=== PATIENT | male | born 1990 | race Caucasian/White ===

== ENCOUNTER 2021-09-11 19:12 | Emergency (ER) | payer OTHER, SELFPAY ==
--- NOTE | ~2021-09-11 | XR_ITS ---
EXAMINATION: XR chest 2V Exam Date/Time: 09/11/2021 19:31 CDT CLINICAL HISTORY: COUGH X 2 WEEKS. Comparison: None available. RESULT: Lines, tubes, and devices: None. Lungs and pleura: Clear. Cardiomediastinal silhouette: Normal cardiomediastinal silhouette. Other: No acute osseous or upper abdominal finding. IMPRESSION: No acute cardiopulmonary process Reviewed, dictated and finalized at location K.
[2021-09-11 19:16] VITALS: BP 149/89; PULSE 103; RESP 16; TEMP 37.1; O2SAT 100
--- NOTE | 2021-09-11 19:28 | ED.URI ---
HPI - URI/Sore Throat General Chief Complaint: Upper Respiratory Infection Stated Complaint: cough sinus pressure Time Seen by Provider: 09/11/21 19:29 Source: patient and RN notes reviewed Mode of arrival: ambulatory Limitations: no limitations History of Present Illness HPI Narrative: 31 y/o male presented for c/o lingering cough for 2 weeks, worse x3 days. Cough is productive of brown/yellow sputum. Worse in the morning with post nasal drainage, causing severe throat pain. States sinus congestion has been improving over the past 2 weeks, endorses subjective fever. MD elicited complaint: cough Related Data Allergies Allergy/AdvReac Type Severity Reaction Status Date / Time No Known Allergies Allergy Verified 09/11/21 19:34 Review of Systems Review of Systems: All systems reviewed & are unremarkable except as noted in HPI and below Exam Narrative: GENERAL: Ill-appearing, nontoxic HEAD: Normocephalic EYES: conjunctivae clear ENT: Mucous membranes moist. TMs pearly hooper with normal light reflex bilaterally; no tragal tenderness. Oropharynx erythematous without lesions or exudate, no drooling, no hoarseness, no trismus, uvula midline.No tripod positioning, muffled voice, soft palate or pharyngeal wall bulging NECK: Supple. No lymphadenopathy CHEST: Clear to auscultation, breath sounds equal. No wheezing, rhonchi, rales, or stridor. No respiratory distress, speaks in full sentences. HEART: Regular rate and rhythm. No murmur heard. SKIN: Warm, dry, no rash. NEURO: Alert and oriented x3. PSYCH: Normal mood and affect Course Course Emergency Course: Patient is aware of diagnosis, understands and agrees to treatment plan. Anticipatory guidance given. Patient agrees to follow-up as directed and is aware of reasons to seek care at the emergency department. Portions of this record may have been created with voice recognition software Level of Care: Express Care Visit Vital Signs Vital signs: Vital Signs Temperature 98.8 F 09/11/21 19:16 Pulse Rate 103 H 09/11/21 19:16 Respiratory Rate 16 09/11/21 19:16 Blood Pressure 149/89 H 09/11/21 19:16 Pulse Oximetry 100 09/11/21 19:16 Temperature 98.8 F 09/11/21 19:16 Pulse Rate 103 H 09/11/21 19:16 Respiratory Rate 16 09/11/21 19:16 Blood Pressure 149/89 H 09/11/21 19:16 Pulse Oximetry 100 09/11/21 19:16 reviewed MDM - URI/Sore Throat MDM Narrative Medical decision making narrative: CXR negative, reviewed with pt. He states he is having paralyzing throat pain when coughing, strep swab negative. Will send abx for sinus infection x2 weeks. He is appropriate for outpt treatment and f/u. Differential Diagnosis Differential diagnosis: Likely upper respiratory infection, sinusitis, viral infection, bronchitis and pharyngitis Lab Data Attestation: I reviewed the patient's lab results. Imaging Data Radiologist's impression: Ordering Physician: Maryjane Razo APRN Date of Service: 09/11/21 Procedure(s): XR chest 2V Accession Number(s): [id number] cc: Maryjane Razo APRN; Liane, Joycelyn Lyle MD~ EXAMINATION: XR chest 2V Exam Date/Time: 09/11/2021 19:31 CDT CLINICAL HISTORY: COUGH X 2 WEEKS. Comparison: None available. RESULT: Lines, tubes, and devices: None. Lungs and pleura: Clear. Cardiomediastinal silhouette: Normal cardiomediastinal silhouette. Other: No acute osseous or upper abdominal finding. IMPRESSION: No acute cardiopulmonary process Discharge Plan Discharge Clinical Impression: Upper respiratory infection Qualifiers: URI type: unspecified URI Qualified Code(s): J06.9 - Acute upper respiratory infection, unspecified Patient Disposition: Home, Self-Care Condition: Stable Instructions: Antibiotic Form, Sinusitis (ED) Additional Instructions: Rapid strep swab was negative today You will be notified in a few days if the culture comes back positive for strep, and appropriate antibiotics will be called in
== END 2021-09-11 20:04 | disposition home or self-care (01) ==
PROVIDERS: Emergency Provider Nurse Practitioner Family; PCP Family Medicine
DX: J06.9 Acute upper respiratory infection, unspecified (principal)
CPT/HCPCS: 71046; 87081; 87880; 99213; G0463

== ENCOUNTER 2023-02-10 17:10 | Emergency (ER) | payer OTHER, SELFPAY ==
[2023-02-10 17:24] VITALS: BP 150/89; PULSE 92; RESP 18; TEMP 36.3; O2SAT 100
--- NOTE | 2023-02-10 18:13 | ED.GENADULT ---
HPI - General Adult General Chief complaint: Skin/Abscess/Foreign Body Stated complaint: rash on feet/legs Source: patient Mode of arrival: ambulatory Limitations: no limitations History of Present Illness HPI narrative: Patient presents for evaluation of skin concerns. He indicates he has an underlying history of eczema. He had noted some pruritic areas of redness to bilateral wrists a few weeks ago. Areas have persisted. He works for a [employer] company and states his feet got extremely wet while working two days ago. He now has areas of redness to the dorsal aspects of his bilateral feet and dry cracked skin to plantar aspects. He placed bandages on both feet. He has some discomfort associated with his symptoms. Denies significant pruritis. He has some areas to his lower legs that he thinks may be areas of eczema. He is not diabetic. Related Data Allergies Allergy/AdvReac Type Severity Reaction Status Date / Time peanut Allergy Unknown Verified 02/10/23 17:22 Review of Systems Review of Systems: CONSTITUTIONAL: Denies fever, chills, or sweats. EYES: Denies visual changes, redness, or discharge. ENT: Denies rhinorrhea, congestion, sore throat, or otalgia. CARDIOVASCULAR: Denies chest pain, palpitations, or edema. RESPIRATORY: Denies cough or dyspnea. GASTROINTESTINAL: Denies abdominal pain, nausea, vomiting, or diarrhea. GENITOURINARY: Denies dysuria or hematuria. SKIN: Reports areas of redness and cracking to bilateral feet. Reports areas of erythematous rash to bilateral lower legs. MUSCULOSKELETAL: Denies back pain, joint pain, or myalgia. NEUROLOGIC: Denies headache, numbness, dizziness, or weakness. PSYCHIATRIC: Denies anxiety or depression. [facility] Past Medical History Medical History (Updated 02/10/23 @ 18:22 by TASHI Pope, DANNI) Eczema Surgical History Surgical History No pertinent past surgical history Family History Family History Mother Family history non-contributory Social History Social History Smoking status: Never smoker Substance use: never Living arrangements: with family Gender identity (if verbalized by the patient): Male Sexual Orientation (if Verbalized by the Patient): Straight or Heterosexual Spiritual care concerns: No Exam Narrative: GENERAL: Well-appearing, well-nourished, and in no acute distress. HEAD: Normocephalic, atraumatic. EYES: PERRLA and EOMI. ENT: Nares clear, no rhinorrhea or epistaxis. Mucous membranes moist. Oropharynx without tonsillar hypertrophy exudate or other lesions. Bilateral TMs pearly hooper nonbulging NECK: Supple. No adenopathy or masses. No carotid bruits or JVD CHEST: Clear to auscultation. No respiratory distress. No wheezes rales or rhonchi HEART: Regular rate and rhythm. No murmur heard. Normal peripheral pulses. ABDOMEN: Soft, nontender, nondistended, normal active bowel sounds. EXTREMITIES: Normal range of motion. No edema. SKIN: There are scaling erythematous plaques noted to the bilateral knees. There are vesicular lesions noted to the bilateral wrists. There are areas of erythema surrounding hair follicles noted to the bilateral lower legs. There is erythema in a patchy distribution to both feet with some areas of redness surrounding hair follicles. There is cracked skin noted to the plantar aspect of bilateral feet NEURO: No focal deficits. Alert and oriented x3. PSYCH: Normal mood and affect. Course Course Emergency Course: This is a 32-year-old male who presented for evaluation of skin concerns. Some of the vesicular lesions appear to be poison kaity. He does have an underlying history of eczema. In an attempt to prevent symptom recurrence often experienced with burst steroid therapy for poison kaity/oak/sumac, will give him a mirtha
== END 2023-02-10 18:11 | disposition home or self-care (01) ==
PROVIDERS: Emergency Provider Nurse Practitioner
DX: L73.9 Follicular disorder, unspecified (principal); L30.9 Dermatitis, unspecified; R21 Rash and other nonspecific skin eruption
CPT/HCPCS: 99213; G0463

== ENCOUNTER 2023-11-09 11:06 | Emergency (ER) | payer OTHER, SELFPAY ==
[2023-11-09 11:12] VITALS: BP 125/75; PULSE 68; RESP 16; TEMP 36.6; O2SAT 99
--- NOTE | 2023-11-09 11:35 | ED.GENADULT ---
HPI - General Adult General Chief complaint: Skin/Abscess/Foreign Body Stated complaint: right hand finger infection Source: patient Mode of arrival: ambulatory Limitations: no limitations History of Present Illness HPI narrative: Patient presents for evaluation of skin changes to the 4th digit of the right hand. He indicates he has a history of eczema. He first noted symptoms consistent with his eczema approximately 2 weeks ago. He began scratching the area and noted excoriation to the skin. He has cleaned the affected digit more than five times with hydrogen peroxide and states that it is not healing. No fever, chills, nausea, vomiting, purulence from the affected area. He indicates that continues to weep clear yellow fluid. He is not diabetic. He does not smoke. He is right hand dominant. Related Data Home Medications Medication Instructions Recorded Confirmed cholecalciferol (vitamin D3) 25 1,000 unit PO DAILY 11/09/23 11/09/23 mcg (1,000 unit) tablet Allergies Allergy/AdvReac Type Severity Reaction Status Date / Time peanut Allergy Unknown Verified 11/09/23 11:17 Review of Systems Review of Systems: CONSTITUTIONAL: Denies fever, chills, or sweats. EYES: Denies visual changes, redness, or discharge. ENT: Denies rhinorrhea, congestion, sore throat, or otalgia. CARDIOVASCULAR: Denies chest pain, palpitations, or edema. RESPIRATORY: Denies cough or dyspnea. GASTROINTESTINAL: Denies abdominal pain, nausea, vomiting, or diarrhea. GENITOURINARY: Denies dysuria or hematuria. SKIN: Reports excoriated skin with weeping fluid from the 4th digit of the right hand MUSCULOSKELETAL: Denies back pain, joint pain, or myalgia. NEUROLOGIC: Denies headache, numbness, dizziness, or weakness. PSYCHIATRIC: Denies anxiety or depression. [facility] Past Medical History Medical History Eczema Surgical History Surgical History No pertinent past surgical history Family History Family History Mother Family history non-contributory Social History Social History Smoking status: Never smoker Substance use: never Living arrangements: with family Gender identity (if verbalized by the patient): Male Sexual Orientation (if Verbalized by the Patient): Straight or Heterosexual Spiritual care concerns: No Exam Narrative: GENERAL: Well-appearing, well-nourished, and in no acute distress. HEAD: Normocephalic, atraumatic. EYES: PERRLA and EOMI. ENT: Nares clear, no rhinorrhea or epistaxis. Mucous membranes moist. Oropharynx without tonsillar hypertrophy exudate or other lesions. Bilateral TMs pearly hooper nonbulging NECK: Supple. No adenopathy or masses. No carotid bruits or JVD CHEST: Clear to auscultation. No respiratory distress. No wheezes rales or rhonchi HEART: Regular rate and rhythm. No murmur heard. Normal peripheral pulses. ABDOMEN: Soft, nontender, nondistended, normal active bowel sounds. EXTREMITIES: Normal range of motion. No edema. SKIN: Excoriated skin noted to the dorsal aspect of the 4th digit of right hand with clear weeping fluid. Wounds were initially covered with Band-Aids which were removed for evaluation NEURO: No focal deficits. Alert and oriented x3. PSYCH: Normal mood and affect. Course Course Emergency Course: This is a 33 yr old male who presented for evaluation of skin changes to fourth digit of right hand. This seems to be a superimposed bacterial infection/impetigo secondary to eczema. Nonhealing nature likely from continued hydrogen peroxide use. Recommended he stop applying that. Wash wound twice daily with antibacterial soap and water. Pat dry. Apply Neosporin. Will discharge with oral cephalexin. Follow-up with primary provider.
== END 2023-11-09 11:38 | disposition home or self-care (01) ==
PROVIDERS: Emergency Provider Nurse Practitioner
DX: L01.00 Impetigo, unspecified (principal); L25.3 Unspecified contact dermatitis due to other chemical products
CPT/HCPCS: 87070; 87075; 87077; 87181; 87205; 99213; G0463

== ENCOUNTER 2023-11-22 14:41 | Emergency (ER) | payer OTHER, SELFPAY ==
[2023-11-22 14:47] VITALS: BP 122/91; PULSE 89; RESP 16; TEMP 36.6; O2SAT 100
--- NOTE | 2023-11-22 14:54 | PC.NURSE ---
Dressing stuck to finger. Soaking finger in saline at this time
--- NOTE | 2023-11-22 15:34 | ED.SKABFB ---
HPI - Skin/Abscess/Foreign Bdy General Chief complaint: Skin/Abscess/Foreign Body Stated complaint: finger infection on right hand History of Present Illness HPI narrative: patient is a 33-year-old male, past medical history significant for eczema, presents to [facility] with persistent rash eruption to the right 3rd and 4th fingers as well as other locations on his hand, for which he was evaluated and treated here approximately 2 weeks ago, treated with oral antibiotics which he reports completing that he does admit to missing a couple of doses and is q.i.d. dosing regimen. He states that the area started to improve however over the past 24 hours, the area began to itch intensely again and last night he scratched the area gently trauma causing tiny vesicles to rupture. He denies any additional associated symptoms, he has no purulent drainage, he is right-hand dominant. Related Data Home Medications Medication Instructions Recorded Confirmed cholecalciferol (vitamin D3) 25 1,000 unit PO DAILY 11/09/23 11/09/23 mcg (1,000 unit) tablet Allergies Allergy/AdvReac Type Severity Reaction Status Date / Time peanut Allergy Unknown Verified 11/09/23 11:17 Review of Systems Integumentary/Breasts: Comments: Refer to [facility] Past Medical History Medical History Eczema Surgical History Surgical History No pertinent past surgical history Family History Family History Mother Family history non-contributory Social History Social History Smoking status: Never smoker Substance use: never Living arrangements: with family Gender identity (if verbalized by the patient): Male Sexual Orientation (if Verbalized by the Patient): Straight or Heterosexual Spiritual care concerns: No Exam Const: General: cooperative, healthy appearing and comfortable Nutritional Appearance: average body habitus Orientation/consciousness: oriented to person, oriented to place, oriented to time and patient oriented x3 Limitations: no limitations HENMT: Head: normal to inspection, No palpable skull fracture present and normocephalic Ears: hearing grossly normal bilaterally, external ears normal and TM's normal bilaterally Face/Nose/Sinus: Normal external nose present and Normal nares present Mouth: Yes Normal oral and palatal mucosa present, Yes lip normal and Yes tongue normal Teeth and gingiva: dentition normal and gingiva normal Throat: posterior oropharynx normal, tonsils normal and uvula midline Eyes: General: appearance normal, both eyes and all related structures Visual Marie: normal visual marie by confrontation Periorbital: periorbital findings normal Eyelids: eyelids normal Conjunctivae: conjunctivae normal EOM: EOMs intact bilaterally Neck: Neck: normal visual inspection, full ROM, no lymphadenopathy and no meningeal signs Thyroid: thyroid normal Resp: Effort & Inspection: normal respiratory effort Auscultation: clear to auscultation bilaterally Percussion: percussion normal Cardio: Palpation: normal PMI Rate: regular rate Rhythm: regular rhythm Heart sounds: S1 normal heart sound present and S2 normal heart sound present Peripheral pulses: Peripheral pulses 2+ throughout Back/Spine/Pelvis: Back: no CVA tenderness Cervical Spine: normal cervical lordosis and cervical ROM normal Skin: General skin exam: normal color and no rashes or lesions noted Rashes: rashes noted Other: patient has an eczematous rash to his right hand, primarily including his 3rd and 4th finger circumferentially, papular with some tiny punctate vesicles present. There are no open wounds or draining areas at present, there is no lymphangitis or gross cellulitis, no tenderness to palpation.
== END 2023-11-22 15:50 | disposition home or self-care (01) ==
PROVIDERS: Emergency Provider Nurse Practitioner Family; PCP Nurse Practitioner
DX: L30.1 Dyshidrosis [pompholyx] (principal)
CPT/HCPCS: 99213; G0463

== ENCOUNTER 2023-12-07 15:44 | Emergency (ER) | payer OTHER, SELFPAY ==
[2023-12-07 15:49] VITALS: BP 125/81; PULSE 96; RESP 16; TEMP 36.3; O2SAT 100
--- NOTE | 2023-12-07 16:21 | ED.WOUNDLAC ---
HPI - Wound/Laceration General Chief Complaint: Wound/Laceration Stated Complaint: Skin Sore Finger Time Seen by Provider: 12/07/23 16:10 Source: patient, RN notes reviewed and old records reviewed Mode of arrival: ambulatory Limitations: no limitations History of Present Illness HPI narrative: 33 year old male presents to [facility] care with complaints of wound to his right distal 4th finger below nail that is excoriated and red reports that he hit his finger about an hour ago and it started bleeding. Patient also has dry excoriated areas to distal middle finger and on the left hand he has blistery type of lesions to the distal middle finger and also to his left distal index finger with no drainage. Patient does have history of eczema and has been here X2 and treated with antibiotic and also given steroid cream but areas have never healed. Patient reports that he has his hands in water working for [employer]. Onset (ago): month(s) (greater than 1 month) Location: other (distal fingers specific both hands affected) Treatments prior to arrival: other (has been on antibiotics and used steroid creams) Related Data Home Medications Medication Instructions Recorded Confirmed cholecalciferol (vitamin D3) 25 1,000 unit PO DAILY 11/09/23 11/09/23 mcg (1,000 unit) tablet Allergies Allergy/AdvReac Type Severity Reaction Status Date / Time peanut Allergy Unknown Verified 12/07/23 15:56 Review of Systems Review of Systems: CONSTITUTIONAL: Denies fever, chills, or sweats. CARDIOVASCULAR: Denies chest pain, palpitations, or edema. RESPIRATORY: Denies cough or dyspnea. SKIN: Reports excoriated areas on distal fingers of both hands some blistery looking lesions distal dorsal left index and middle finger, excoriation and redness of distal 4th right finger and middle finger, no drainage noted MUSCULOSKELETAL: Denies joint pain or myalgia. NEUROLOGIC: Denies headache, numbness, or weakness. All systems reviewed & are unremarkable except as noted in HPI and below PMFSH Past Medical History Medical History Asthma childhood Eczema History of sinus problem Surgical History Surgical History No pertinent past surgical history Family History Family History Mother Family history non-contributory Social History Social History Smoking status: Never smoker Substance use: never Living arrangements: with family Gender identity (if verbalized by the patient): Male Sexual Orientation (if Verbalized by the Patient): Straight or Heterosexual Spiritual care concerns: No Comments At time of signature, agree with nursing past medical, surgical, social and family history. There is no relevant family history pertinent to the presenting complaint Exam Narrative: GENERAL: Well-appearing, well-nourished, and in no acute distress. HEAD: Normocephalic, atraumatic. EYES: PERRLA, conjunctivae clear, and EOMI. ENT: Mucous membranes moist. Oropharynx without edema, erythema or lesions. NECK: Supple. No lymphadenopathy CHEST: Clear to auscultation. No respiratory distress.SAO2 100% on room air HEART: Regular rate and rhythm. SKIN: Warm, dry.? Patches of erythema with excoriation of distal ends of right 3rd and 4th fingers and also blistery looking lesions to distal left index finger and middle finger with no drainage, patient reports treated X2 with antibiotics and steroid creams with no healing.Reports discomfort to the right 4th finger NEURO:? Alert and oriented x3. PSYCH: Normal mood and affect Course Course Emergency Course: Patient is aware of diagnosis, understands and agrees to treatment plan.? Anticipatory guidance given.? Patient agrees to follow-up as directed and is aware of re
== END 2023-12-07 17:10 | disposition home or self-care (01) ==
PROVIDERS: Emergency Provider Registered Nurse
DX: L30.1 Dyshidrosis [pompholyx] (principal)
CPT/HCPCS: 99213; G0463

== ENCOUNTER 2024-01-02 12:42 | Emergency (ER) | payer OTHER, SELFPAY ==
[2024-01-02 12:56] VITALS: BP 124/78; PULSE 94; RESP 18; TEMP 37.3; O2SAT 100
[2024-01-02 13:52] LABS: EDINFLUASCREEN Negative; EDINFLUBSCREEN Negative
--- NOTE | 2024-01-02 22:16 | ED.GENADULT ---
HPI - General Adult General Chief complaint: Upper Respiratory Infection Stated complaint: covid exposure Time Seen by Provider: 01/02/24 13:34 Source: patient, RN notes reviewed and old records reviewed Mode of arrival: ambulatory Limitations: no limitations History of Present Illness HPI narrative: 33-year-old male to Express Care for complaint of fatigue and mild cough for 2 days. Patient reports that his has recently tested positive for COVID. Patient denies fever, headache, sore throat, ear pain, shortness of breath, chest pain, GI complaints, urinary changes, pertinent medical history. Patient denies attempting to treat at home. Patient able to tolerate fluids by mouth. Respirations even and nonlabored. Patient in no acute distress. Related Data Home Medications Medication Instructions Recorded Confirmed cholecalciferol (vitamin D3) 25 1,000 unit PO DAILY 11/09/23 01/02/24 mcg (1,000 unit) tablet doxepin 10 mg capsule See Rx Instructions .Route .COMPLEX 01/02/24 01/02/24 mometasone 0.1 % topical cream See Rx Instructions .Route .COMPLEX 01/02/24 01/02/24 Allergies Allergy/AdvReac Type Severity Reaction Status Date / Time peanut Allergy Severe Anaphylaxis Verified 01/02/24 13:17 Review of Systems Review of Systems: All systems reviewed & are unremarkable except as noted in HPI and below Constitutional: Constitutional: Reports no additional constitutional complaints Eyes: Eyes: Reports no additional eye complaints ENT: Reports system reviewed and no additional complaints, except as documented Cardiovascular: Cardiovascular: Reports no additional cardiovascular complaints, Denies chest pain and Denies dyspnea Respiratory: Respiratory: Reports no additional respiratory complaints, Denies cough and Denies dyspnea Musculoskeletal: Musculoskeletal: Reports no additional musculoskeletal complaints Neurologic: Reports system reviewed and no additional complaints, except as documented Psychiatric: Psychiatric: Reports no additional psychiatric complaints [facility] Past Medical History Medical History Asthma childhood Eczema History of sinus problem Surgical History Surgical History No pertinent past surgical history Family History Family History Mother Family history non-contributory Social History Social History Smoking status: Never smoker Substance use: never Living arrangements: with family Gender identity (if verbalized by the patient): Male Sexual Orientation (if Verbalized by the Patient): Straight or Heterosexual Spiritual care concerns: No Comments At the time of my signature, I reviewed and agree with the nursing past medical, surgical, social, and family history. There is no relevant family history pertinent to the patient complaint. Exam Const: General: cooperative, healthy appearing, comfortable, no acute distress, alert and well nourished Nutritional Appearance: well nourished Orientation/consciousness: patient oriented x3 Limitations: no limitations HENMT: Head: normal to inspection Ears: external ears normal Face/Nose/Sinus: Normal external nose present, Normal nares present, normal facial exam, No erythema and No edema Face and sinus: normal facial exam, no erythema and no edema Mouth: Yes Normal oral and palatal mucosa present Eyes: General: appearance normal, both eyes and all related structures Neck: Neck: normal visual inspection, full ROM and no meningeal signs Lymphatic: no lymphadenopathy noted and no lymphedema noted Chest: Chest palpation & inspection: normal inspection of the chest Resp: Effort & Inspection: normal respiratory effort and able to speak in complete sentences Auscultation: clear to auscultation bilaterally Car
== END 2024-01-02 13:40 | disposition home or self-care (01) ==
PROVIDERS: Emergency Provider Nurse Practitioner Family
DX: B34.9 Viral infection, unspecified (principal); Z20.822 Contact with and (suspected) exposure to COVID-19
CPT/HCPCS: 87426; 87804; 99213; G0463

== ENCOUNTER 2024-01-10 15:08 | Emergency (ER) | payer OTHER, SELFPAY ==
[2024-01-10 15:15] VITALS: BP 132/80; PULSE 80; RESP 16; TEMP 36.9; O2SAT 100
--- NOTE | 2024-01-10 15:28 | ED.DENTAL ---
HPI - Dental/Oral General Chief complaint: Dental/Oral Stated complaint: Mouth Sore Time Seen by Provider: 01/10/24 15:28 Source: patient, RN notes reviewed and old records reviewed Mode of arrival: ambulatory Limitations: no limitations History of Present Illness HPI Narrative: 33 year old male presents to [facility] care with complaints of sore throat along the back of his throat posterior of the soft tissue of roof of the mouth since yesterday. Patient reports that he was checked for COVID, flu last week and all test were negative. Patient reports pain to throat area with chewing,swallowing, and if rubs tongue along area of throat.Patient reports no known fevers,chills or sweats or any body ache. MD Complaint: tooth pain (mouth pain) Onset (ago): day(s) (day 2 of symptoms) Severity: mild Treatment prior to arrival: oral analgesic Related Data Home Medications Medication Instructions Recorded Confirmed cholecalciferol (vitamin D3) 25 1,000 unit PO DAILY 11/09/23 01/02/24 mcg (1,000 unit) tablet Allergies Allergy/AdvReac Type Severity Reaction Status Date / Time peanut Allergy Severe Anaphylaxis Verified 01/10/24 15:11 Review of Systems Review of Systems: CONSTITUTIONAL: Denies fever, chills, or sweats. ENT: Denies rhinorrhea, congestion,positive for pain along posterior throat and roof of mouth sore , no otalgia. Reports no dental pain CARDIOVASCULAR: Denies chest pain, palpitations, or edema. RESPIRATORY: Denies cough or dyspnea. SKIN: Denies rash or itching. MUSCULOSKELETAL: Denies myalgia. NEUROLOGIC: Denies headache All systems reviewed & are unremarkable except as noted in HPI and below PMFSH Past Medical History Medical History Asthma childhood Eczema History of sinus problem Surgical History Surgical History No pertinent past surgical history Family History Family History Mother Family history non-contributory Social History Social History Smoking status: Never smoker Substance use: never Living arrangements: with family Gender identity (if verbalized by the patient): Male Sexual Orientation (if Verbalized by the Patient): Straight or Heterosexual Spiritual care concerns: No Comments At time of signature, agree with nursing past medical, surgical, social and family history. There is no relevant family history pertinent to the presenting complaint Exam Narrative: GENERAL: Well-appearing, well-nourished, and in no acute distress. HEAD: Normocephalic, atraumatic. EYES: PERRLA and EOMI. ENT: Nares clear, no rhinorrhea or epistaxis. Mucous membranes moist. throat redness with complaints of soreness and along roof of mouth,no exudates or lesions noted, Patient reports no dental pain NECK: Supple.no lymphadenopathy CHEST: Clear to auscultation. No respiratory distress. SAO2 100% on room air HEART: Regular rate and rhythm. No murmur heard. Normal peripheral pulses. SKIN: Warm, dry, no rash. NEURO: No focal deficits. Alert and oriented x3. Course Course Emergency Course: Patient is aware of diagnosis, understands and agrees to treatment plan. Anticipatory guidance given. Patient agrees to follow-up as directed and is aware of reasons to seek care at the emergency department. Portions of this record may have been created with voice recognition software Level of Care: Express Care Visit Vital Signs Vital signs: Vital Signs Temperature 36.9 C 01/10/24 15:15 Pulse Rate 80 01/10/24 15:15 Respiratory Rate 16 01/10/24 15:15 Blood Pressure 132/80 01/10/24 15:15 Pulse Oximetry 100 01/10/24 15:15 Oxygen Delivery Room Air 01/10/24 15:15 Temperature 36.9 C 01/10/24 15:15 Pulse Rate 80 01/10/24 15:15 Respiratory Rate 16 01/09
[2024-01-10 16:04] LABS: EDSTREPNEGPOS1 Negative
== END 2024-01-10 16:02 | disposition home or self-care (01) ==
PROVIDERS: Emergency Provider Registered Nurse
DX: J02.9 Acute pharyngitis, unspecified (principal)
CPT/HCPCS: 87081; 87880; 99213; G0463

== ENCOUNTER 2024-02-29 15:57 | Emergency (ER) | payer OTHER, SELFPAY ==
[2024-02-29 16:05] VITALS: BP 137/77; PULSE 79; RESP 17; TEMP 37; O2SAT 100
--- NOTE | 2024-02-29 16:22 | ED.URI ---
HPI - URI/Sore Throat General Chief Complaint: Upper Respiratory Infection Stated Complaint: Cough Time Seen by Provider: 02/29/24 16:22 Source: patient Mode of arrival: ambulatory Limitations: no limitations History of Present Illness HPI Narrative: 33-year-old male presents with complaint of cough, chest congestion for 10-14 days. Reports started as sinus congestion and pressure. Taking [id number] DayQuil NyQuil cold and flu. Reports congestion has improved. Coughing up green sputum. No chest pain or shortness of breath. Afebrile. All systems reviewed and negative except as noted above. Related Data Home Medications Medication Instructions Recorded Confirmed cholecalciferol (vitamin D3) 25 1,000 unit PO DAILY 11/09/23 01/02/24 mcg (1,000 unit) tablet Allergies Allergy/AdvReac Type Severity Reaction Status Date / Time peanut Allergy Severe Anaphylaxis Verified 01/10/24 15:11 Review of Systems Review of Systems: CONSTITUTIONAL: Denies fever, chills, or sweats. EYES: Denies visual changes, redness, or discharge. ENT: Reports rhinorrhea, congestion. Denies sore throat, or otalgia. CARDIOVASCULAR: Denies chest pain, palpitations, or edema. RESPIRATORY: reports cough, chest congestion. Denies dyspnea. GASTROINTESTINAL: Denies abdominal pain, nausea, vomiting, or diarrhea. GENITOURINARY: Denies dysuria or hematuria. SKIN: Denies rash or itching. MUSCULOSKELETAL: Denies back pain, joint pain, or myalgia. NEUROLOGIC: Denies headache, numbness, or weakness. PSYCHIATRIC: Denies anxiety or depression. All other systems reviewed are negative, except as documented in HPI. [facility] Past Medical History Medical History Asthma childhood Eczema History of sinus problem Surgical History Surgical History No pertinent past surgical history Family History Family History Mother Family history non-contributory Social History Social History Smoking status: Never smoker Substance use: never Living arrangements: with family Gender identity (if verbalized by the patient): Male Sexual Orientation (if Verbalized by the Patient): Straight or Heterosexual Spiritual care concerns: No Comments At time of signature, agree with nursing past medical, surgical, social and family history. There is no relevant family history pertinent to the presenting complaint. Exam Narrative: GENERAL: This is a well-nourished, well-developed patient, in no apparent distress. HEAD: normocephalic, atraumatic. EYES: PERRL. Sclera clear/white. Vision is grossly intact. EARS: External ears normal, auditory canals clear and without drainage, TMs normal without perforation. Hearing grossly intact. NOSE: External nose normal with Mild congestion, clear nasal drainage, erythema to bilateral nares THROAT: Mucous membranes moist, posterior pharynx clear. NECK: Neck supple, non-tender without lymphadenopathy, masses or thyromegaly. CARDIOVASCULAR: Regular rate and rhythm without murmurs, gallops, or rubs. RESPIRATORY: rhonchi to bilateral lower lung marie otherwise clear. Breath sounds equal bilaterally. No wheezes, rales SKIN: warm, Dry, intact with no suspicious lesions or rash, good texture and turgor. NEURO: awake, alert, and oriented to person, place and time. There were no obvious focal neurologic abnormalities. EXTREMITIES: No joint tenderness, effusion, or edema noted.\ Course Course Level of Care: Express Care Visit Vital Signs Vital signs: Vital Signs Temperature 37.0 C 02/29/24 16:05 Pulse Rate 79 02/29/24 16:05 Respiratory Rate 17 02/29/24 16:05 Blood Pressure 137/77 02/29/24 16:05 Pulse Oximetry 100 02/29/24 16:05 Oxygen Delivery Room Air 02/29/24 16:05 Temperature 37.0 C 02/29/24 16:05 Pulse Rate 79 02/29/24 16:05 Respiratory Rate 17 02/29/24 16:05 Blood Pressure 137/77 02/29/24 16:05 Pulse Oximetry 100 02/29/24 16:05 Oxygen Delivery Room Air 02/29/24 16:05 reviewed MDM - URI/Sore Throat MDM Narrative Medical decision making narrative: Patient is aware of diagnosis, understands and agrees to treatment plan. Anticipatory guidance given. Patient agrees to follow-up as directed and is aware of reasons to seek care at the emergency department. Portions of this record may have been created with voice recognition software Differential Diagnosis Differential diagnosis: Likely upper respiratory infection, sinusitis, viral infection and bronchitis Discharge Plan Discharge Clinical Impression: Acute bronchitis Qualifiers: Bronchitis organism: unspecified organism Qualified Code(s): J20.9 - Acute bronchitis, unspecified Patient Disposition: Home, Self-Care Condition: Stable Instructions: Antibiotic Form, Acute Bronchitis (ED) Additional Instructions: Take medications as prescribed. Continue taking [id number] Mucinex as directed on packaging. Take ibuprofen or Tylenol every 6-8 hours as needed for pain and fever. Drink at least 64 oz of water a day. Follow-up with your primary care physician if symptoms are not improving. Prescriptions: New doxycycline hyclate 100 mg capsule 100 mg PO BID 7 Days Qty: 14 0RF prednisone 20 mg tablet 40 mg PO DAILY 5 Days Qty: 10 0RF fluticasone propionate [Flonase Allergy Relief] 50 mcg/actuation spray,suspension 1 spray intranasal BID Qty: 16 0RF Rx Instructions: administer into each nostril No Action cholecalciferol (vitamin D3) 25 mcg (1,000 unit) tablet 1,000 unit PO DAILY lidocaine HCl [Lidocaine Viscous] 2 % solution 1 applic mucous membrane QID PRN (Reason: pain) Qty: 100 0RF Follow-up/Referrals: Eva Stover RN [Primary Care Provider] - Time of Disposition: 16:31
== END 2024-02-29 16:38 | disposition home or self-care (01) ==
PROVIDERS: Emergency Provider Nurse Practitioner Family
DX: J20.9 Acute bronchitis, unspecified (principal)
CPT/HCPCS: 99213; G0463

== ENCOUNTER 2024-06-27 09:15 | Emergency (ER) | payer OTHER, SELFPAY ==
[2024-06-27 09:19] VITALS: BP 130/97; PULSE 98; RESP 20; TEMP 36.3; O2SAT 100
--- NOTE | 2024-06-27 09:20 | ED_ITS ---
HPI - Skin/Abscess/Foreign Bdy General Chief complaint: Skin/Abscess/Foreign Body Stated complaint: Skin Sore/Left Leg Time Seen by Provider: 06/27/24 09:15 Source: patient Mode of arrival: ambulatory Limitations: no limitations History of Present Illness HPI narrative: Patient is a 34-year-old male who presents with 3 days of growing sore on left lower eye. Patient states this started as a pimple in use antibiotic ointment and steroid cream without relief. Does report drainage from wound. Related Data Home Medications ?Medication ?Instructions ?Recorded ?Confirmed ?Last Taken ?Type cholecalciferol (vitamin D3) 25 1,000 unit PO DAILY 11/09/23 01/02/24 Unknown History mcg (1,000 unit) tablet Allergies Allergy/AdvReac Type Severity Reaction Status Date / Time peanut Allergy Severe Anaphylaxis Verified 01/10/24 15:11 Review of Systems 2 Review of Systems: All systems reviewed & are unremarkable except as noted in HPI and below Constitutional: Constitutional: Denies body ache(s), Denies chills, Denies fatigue, Denies fever(s), Denies headache(s), Denies malaise and Denies weakness Eyes: Eyes: Denies blurry vision, Denies irritation and Denies loss of vision ENT: Denies otalgia, Denies headache(s), Denies nasal discharge, Denies sinus pain and Denies sore throat Cardiovascular: Cardiovascular: Denies chest pain, Denies irregular heart rhythm and Denies dyspnea Respiratory: Respiratory: Denies dyspnea Gastrointestinal: Gastrointestinal: Denies abdominal pain, Denies melena, Denies hematochezia, Denies diarrhea, Denies nausea and Denies vomiting Musculoskeletal: Musculoskeletal: Denies back pain, Denies myalgias and Denies arthralgias Integumentary/Breasts: Skin/Breast: Denies pruritus and Denies rash Neurologic: Denies headache(s), Denies loss of vision and Denies weakness Psychiatric: Psychiatric: Reports no additional psychiatric complaints Endocrine: Endocrine: Denies fatigue PMFSH Past Medical History Medical History Asthma childhood History of sinus problem Eczema Surgical History Surgical History No pertinent past surgical history Family History Family History Mother Family history non-contributory Social History Social History Smoking status: Never smoker Substance use: never Living arrangements: with family Gender identity (if verbalized by the patient): Male Sexual Orientation (if Verbalized by the Patient): Straight or Heterosexual Spiritual care concerns: No Comments At time of signature, agree with nursing past medical, surgical, social and family history. There is no relevant family history pertinent to the presenting complaint. Exam 2 Const: General: cooperative, healthy appearing, comfortable, no acute distress and well nourished Nutritional Appearance: well nourished O rientation/consciousness: patient oriented x3 Limitations: no limitations HENMT: Head: normal to inspection, normocephalic and atraumatic Ears: h earing grossly normal bilaterally and external ears normal Face/Nose/Sinus: N ormal external nose present, normal facial exam and face symmetric Face and sinus: normal facial exam and face symmetric Mouth: Yes lip normal Eyes: General: appearance normal, both eyes and all related structures A lignment and Position: alignment normal and position normal Periorbital: p eriorbital findings normal Eyelids: eyelids normal Pupils: Equal, round and reactive pupils present EOM: EOMs intact bilaterally Neck: Neck: normal visual inspection, full ROM and supple Chest: Chest palpation & inspection: normal inspection of the chest Resp: Effort & Inspection: normal respiratory effort and able to speak in complete sentences Auscultation: clear to auscultation bilaterally Cardio: Rate: regular rate Rhythm: regular rhythm Heart sounds: S1 normal heart sound present and S2 normal heart sound present GI: Inspection: normal to inspection Skin: General skin exam: normal color and no rashes or lesions noted L esions: lesion noted pustule left anterior upper leg size (0.5 cm circular open wound with surrounding 3 cm circular area of erythema), borders ill-defined and irregular, color with an erythematous base, consistency firm; not fluctuant, surface (open area of drainage in center) warm and with an erythematous base and tender Full body images: 1. 0.5 cm circular open wound with surrounding 3 cm circular area of erythema and induration. NO fluctuation. active drainage Neuro: General: patient oriented x3 and moves all extremities Cranial nerves: Yes Equal, round and reactive pupils present Speech: normal speech Gait exam (Neuro): Normal gait present Extrem: General: normal to inspection, full ROM and no edema Psych: Appearance: grossly normal and well kempt Mental Status: mental status grossly normal Speech and movement: Normal speech and movement present Affect: normal affect Attitude: cooperative Thought process: Normal thought process present Course Course Emergency Course: Patient is aware of diagnosis, understands and agrees to treatment plan. Anticipatory guidance given. Patient agrees to follow-up as directed and is aware of reasons to seek care at the emergency department. Portions of this record may have been created with voice recognition software Level of Care: Express Care Visit Vital Signs Vital signs: Vital Signs Temperature 36.3 C L 06/27/24 09:19 Pulse Rate 98 06/27/24 09:19 Respiratory Rate 20 06/27/24 09:19 Blood Pressure 130/97 H 06/27/24 09:19 Pulse Oximetry 100 06/27/24 09:19 Oxygen Delivery Room Air 06/27/24 09:19 Temperature 36.3 C L 06/27/24 09:19 Pulse Rate 98 06/27/24 09:19 Respiratory Rate 20 06/27/24 09:19 Blood Pressure 130/97 H 06/27/24 09:19 Pulse Oximetry 100 06/27/24 09:19 Oxygen Delivery Room Air 06/27/24 09:19 Reviewed MDM - Skin/Abscess/Foreign Bdy MDM Narrative Medical decision making narrative: Pt well hydrated appearing, in no respiratory distress, hemodynamically stable. Recommend supportive care. The patient is stable at time of discharge the clinical impression was discussed and the patient was given the opportunity to ask questions, which were addressed as completely as possible given the information available at present. Anticipatory guidance and return to care precautions were discussed and the importance of primary care follow-up was stressed and encouraged. The patient voiced understanding of the plan, indications to return, and the need for follow-up. Exam findings show no acute concerns or changes Patient is appropriate for outpatient treatment and follow-up. Differential Diagnosis Differential diagnosis: Likely abscess of skin or subcutaneous tissue, herpes zoster, cellulitis and contact dermatitis Medical Records Attestation: I reviewed the patient's medical records. Discharge Plan Discharge Clinical Impression: Abscess of skin or subcutaneous tissue Qualifiers: Site of cutaneous abscess: extremity Site of cutaneous abscess of extremity: l ower extremity Laterality: left Qualified Code(s): L02.416 - Cutaneous abscess of left lower limb Patient Disposition: Home, Self-Care Condition: Stable Instructions: Abscess (ED) Additional Instructions: Please follow up with your Primary Care Doctor within 48-72 hours - call for an appointment. Rest and elevate affected area; apply moist heat 3-4 times daily for 10-15 minutes. Take Motrin 600mg every 8 hours with food for pain. Please take Antibiotics as directed. If you experience any worsening redness, swelling, streaking (red lines), fever or chills please go to the ER L Your blood pressure was elevated above 120/80 today at Urgent Care. This puts you above the threshold for follow up visit with a primary care provider. High blood pressure does not usually cause any symptoms, however it may lead to kidney failure, stroke, heart disease just to name a few if untreated . Many people are anxious when seeing a provider or nurse. As a result, you are not diagnosed with hypertension at this time unless your blood pressure is persistently high at two office visits at least one week apart. Some things that can help lower blood pressure are lifestyle modifications, such as light exercise, decreased salt in diet, and weight loss. It is important to follow up with a PCP about this within 1 week. Patient Language: Palauan Prescriptions: New clindamycin HCl 300 mg capsule 300 mg PO Q8H 10 Days Qty: 30 0RF sulfamethoxazole-trimethoprim 800-160 mg tablet 1 tablet PO Q12H 10 Days Qty: 20 0RF mupirocin 2 % ointment 1 applic topical BID Qty: 15 0RF No Action cholecalciferol (vitamin D3) 25 mcg (1,000 unit) tablet 1,000 unit PO DAILY lidocaine HCl [Lidocaine Viscous] 2 % solution 1 applic mucous membrane QID PRN (Reason: pain) Qty: 100 0RF doxycycline hyclate 100 mg capsule 100 mg PO BID 7 Days Qty: 14 0RF prednisone 20 mg tablet 40 mg PO DAILY 5 Days Qty: 10 0RF fluticasone propionate [Flonase Allergy Relief] 50 mcg/actuation spray,suspension 1 spray intranasal BID Qty: 16 0RF Rx Instructions: administer into each nostril Follow-up/Referrals: Eva Stover RN [Primary Care Provider] - 3 Days Time of Disposition: 09:57
--- OUTSIDE RECORDS SUMMARY | 2024-06-27 09:56 | XMS_ITS | Data Portability ---
[facility] Address [address] [place] [address] Care Team Providers Care Liability Analyst Name Role Phone EVA STOVER Primary Care Provider Unavailabl e Assessment No assessment recorded. Plan of Treatment Reminders Order Date Submit Date Provider Last Modified By Organization Details Last Modified Time Details Appointments None recorded. Lab vitamin D, 25-hydroxy, total, serum 2023 024 [email or web address] [facility], [address] [place] [address], [address], 5 17:23:22 CMP, serum or plasma 2023 024 [email or web address] [facility], [address] [facility] [address], [address], 5 17:23:22 CBC w/ auto diff 2023 024 SCOTTIE [facility], [address] [place] [address], [place], [address], 4 06:18:23 CMP, serum or plasma 2023 024 SCOTTIE [facility], [address] [facility] [address], [place], [address], 4 06:18:21 TSH + free T4, serum 2023 024 SCOTTIE [facility], [address] [facility] 2, [place], [address], 4 10:13:58 vitamin D, 25-hydroxy, total, serum 2023 024 [facility], [address] [facility] [address], [place], [address], 4 10:14:01 vitamin B12, serum 2023 024 [facility], [address] [facility], [place], [address], 4 10:14:00 SARS CoV 2 RNA (COVID-19), , powder carrier-PCR, respiratory specimen - 14[facility] 2019 020 [facility] (Lab), [address] [place], [address], 0 12:17:[address] referral 2023 024 [email or web address] [facility], [address] [place] [address], [address], 4 10:49:55 Procedures None recorded. Surgeries None recorded. Imaging None recorded. Medication Orders EpiPen 2-John 0.3 mg/0.3 mL injection, auto-inject or 2023 024 [email or web address] [id number], [address] [place], [place], [id number], 4 15:38:18 Debrox 6.5 % ear drops 2023 024 [id number], [address] [place], [place], [id number], 4 16:33:19 Patient TargetsNo targets recorded. Patient Instructions Encounter Date Encounter Id Patient Instructions Last Modified By Organization Details Last Modified Time 04/08/2020 [id number] Reviewed the following recommendations: -Stay home and separate from others as much as possible. -Monitor your symptoms and seek medical attention for trouble breathing, persistent chest pain, confusion, or bluish lips or face. -Wear a mask if you must be around other people. -Wash your hands often for 20 seconds with soap and water and clean high-touch surfaces daily -You may discontinue home isolation if your symptoms are improving and it has been 10 days since symptoms started. [email or web address] Not available 04/08/2020 14:53:50 09/27/2023 [id number] gastroesophageal reflux disease (GERD): care instructions Not available 09/27/2023 15:38:18 GERD diet education [email or web address] Not availa ble 09/27/2023 15:38:18 acid reflux diet [email or web address] Not available 09/27/2023 15:38:19 Tdap (tetanus, diphtheria, pertussis) vaccine: what you need to know [email or web address] Not available 09/27/2023 15:38:18 A healthy lifest yle: care instructions [email or web address] Not available 09/27/2023 17:28:50 Plan of care has been discussed with patient including expected therapeutic benefits and potential side effects of prescribed medication and treatments. Patient verbalizes understanding and is in agreement with the plan of care. Patient was instructed to keep all scheduled appointments and contact the clinic for any additional problems. Not available 09/27/2023 17:28:15 12/20/2023 [id number] Plan of care has been discussed with patient including expected therapeutic benefits and potential side effects of prescribed medication and treatments. Patient verbalizes understanding and is in agreement with the plan of care. Patient was instructed to keep all scheduled appointments and contact the clinic for any additional problems. Health Maintenance: - CRC screening (45-75):Due at 45 years. - Osteoporosis screening: Due at 65. - Lipid screening (>45 unless additional risk factors): N/A - HIV : Declined 12/20/23 - HepC: Declined 12/20/23 -Eye exam: 2023 -Dental Exam: 2023 - Immunizations: - Influenza: Due Fall - Prevnar 20: Due at 65. - Tdap/Td ([id number]): 09/27/23 - Zoster (>60):Due at 60. - COVID-19: 09/11/20, 08/14/20 - AAA screening (65-75): Due at 65. - Prostate ca screening (>50 or >45 if AA, +FH; d/w patient): Due at 50. -Labs ordered this visit: N/A [email or web address] Not available 01/13/2024 18:53:00 03/31/2024 [id number] influenza (flu) vaccine: care instructions [email or web address] Not available 03/31/2024 16:57:07 Plan of care has been discussed with patient including expected therapeutic benefits and potential side effects of prescribed medication and treatments. Patient verbalizes understanding and is in agreement with the plan of care. Patient was instructed to keep all scheduled appointments and contact the clinic for any additional problems. Health Maintenance: - CRC screening (45-75):Due at 45 years. - Osteoporosis screening: Due at 65. - Lipid screening (>45 unless additional risk factors): N/A - HIV : Declined - HepC: Declined -Eye exam: 2023 -Dental Exam: 2023 - Immunizations: - Influenza: Due Fall - Prev 20: Due at 65. - Tdap/Td ([id number]): 09/27/23 - Zoster (>60):Due at 60. - COVID-19: 09/11/20, 08/14/20 - AAA screening (65-75): Due at 65. - Prostate ca screening (>50 or >45 if AA, +FH; d/w patient): Due at 50. -Labs ordered this visit: N/A [email or web address] Not available 04/08/2024 14:15:18 Reason for Referral Radio Program Checker Referral for Erwin benoit Referring Physician: Eva Stover, Family Medicine, Encounter Date: 12/20/2023 Results Created Date Observation Date Name Description Value Unit Range Abnormal Flag Note LastModifiedBy Organization Detail LastModifiedTime 04/12/20 20 04/12/2020 SARS CoV 2 RNA (COVI D-19) , QL, powder carrier-P CR, respi rator y speci men covid-19 positive Not Available [facility] (Lab) [address] [place], [address], 04/12/2020 12:17:45 09/27/19 24 09/27/2023 COMP. METAB OLIC PANEL (14) glucose 88 mg/dL 70-99 Not Available [facility] Him Department [address] [place] [address], [address], 09/28/2023 06:18:21 09/27/19 24 09/27/2023 COMP. METAB OLIC PANEL (14) BUN 16 mg/dL 6-20 Not Available [facility] Department [address] [place] [address], [address], 09/28/2023 06:18:21 09/27/19 24 09/27/2023 COMP. METAB OLIC PANEL (14) creatinine 0.95 mg/dL 0.76-1 .27 Not Available [facility] Department [address] [place] [address], [address], 09/28/2023 06:18:21 09/27/19 24 09/27/2023 COMP. METAB OLIC PANEL (14) eGFR 108 >=60 Units for eGFR value s are mL/mi n/1.7 3 The eGFR Calcu latio n has not been valid ated for patie nts under the age of 18. If test resul ts are displ ayed for a patie nt under the age of 18, disre franklin that value . Not Available [facility] Department [address] [place] [address], [address], 09/28/2023 06:18:21 09/27/19 24 09/27/2023 COMP. METAB OLIC PANEL (14) BUN/creatini ne ratio 17 9-20 Not Available [facility] Department [address] [place] [address], [address], 09/28/2023 06:18:21 09/27/19 24 09/27/2023 COMP. METAB OLIC PANEL (14) sodium 138 mmol/ L 134-14 4 Not Available [facility] Department [address] [place] [address], [address], 09/28/2023 06:18:21 09/27/19 24 09/27/2023 COMP. METAB OLIC PANEL (14) potassium 4.3 mmol/ L 3.5-5. 2 Not Available [facility] Department [address] [place], [address], 09/28/2023 06:18:21 09/27/19 24 09/27/2023 COMP. METAB OLIC PANEL (14) chloride 101 mmol/ L 96-106 Not Available [facility] Department [address] [place] [address], [address], 09/28/2023 06:18:21 09/27/19 24 09/27/2023 COMP. METAB OLIC PANEL (14) carbon dioxide, total 24 mmol/ L 20-29 Not Available [facility] Department [address] [place] [address], [address], 09/28/2023 06:18:21 09/27/19 24 09/27/2023 COMP. METAB OLIC PANEL (14) calcium 9.8 mg/dL 8.7-10 .2 Not Available [facility] Department [address] [place] [address], [address], 09/28/2023 06:18:21 09/27/19 24 09/27/2023 COMP. METAB OLIC PANEL (14) protein, total 7.7 g/dL 6.0-8. 5 Not Available [facility] Department [address] [place], [address], 09/28/2023 06:18:21 09/27/19 24 09/27/2023 COMP. METAB OLIC PANEL (14) albumin 4.8 g/dL 4.1-5. 1 Not Available [facility] Department [address] [place] [address], [address], 09/28/2023 06:18:21 09/27/19 24 09/27/2023 COMP. METAB OLIC PANEL (14) globulin, total 2.9 g/dL 1.5-4. 5 Not Available [facility] Department [address] [place], [address], 09/28/2023 06:18:21 09/27/19 24 09/27/2023 COMP. METAB OLIC PANEL (14) A/G ratio 1.6 1.2-2. 2 Not Available [facility] Department [address] [place], [address], 09/28/2023 06:18:21 09/27/19 24 09/27/2023 COMP. METAB OLIC PANEL (14) bilirubin, total 0.5 mg/dL 0.0-1. 2 Not Available [facility] Department [address] [place], [address], 09/28/2023 06:18:21 09/27/19 24 09/27/2023 COMP. METAB OLIC PANEL (14) alkaline phosphatase 102 IU/L 44-121 Not Available [facility] Department [address] [place], [address], 09/28/2023 06:18:21 09/27/19 24 09/27/2023 COMP. METAB OLIC PANEL (14) AST (SGOT) 35 IU/L 0-40 Not Available [facility] Department [address] [place], [address], 09/28/2023 06:18:21 09/27/19 24 09/27/2023 COMP. METAB OLIC PANEL (14) ALT (SGPT) 67 IU/L 0-44 above high normal Not Available [facility] Department [address] [place] [address], [address], 09/28/2023 06:18:21 09/27/19 24 09/27/2023 CBC WITH DIFFE RENTI AL/PL ATELE T WBC 7.4 x10e3 /uL 3.4-10 .8 Not Available [facility] Department [address] [place] [address], [address], 09/28/2023 06:18:22 09/27/19 24 09/27/2023 CBC WITH DIFFE RENTI AL/PL ATELE T RBC 5.31 x10e6 /uL 4.14-5 .80 Not Available [facility] Department [address] [place], [address], 09/28/2023 06:18:22 09/27/19 24 09/27/2023 CBC WITH DIFFE RENTI AL/PL ATELE T hemoglobin 16.1 g/dL 13.0-1 7.7 Not Available [facility] Department [address] [place], [address], 09/28/2023 06:18:22 09/27/19 24 09/27/2023 CBC WITH DIFFE RENTI AL/PL ATELE T hematocrit 48.2 % 37.5-5 1.0 Not Available [facility] Department [address] [place], [address], 09/28/2023 06:18:22 09/27/19 24 09/27/2023 CBC WITH DIFFE RENTI AL/PL ATELE T MCV 91 fL 79-97 Not Available [facility] Department [address] [place], [address], 09/28/2023 06:18:22 09/27/19 24 09/27/2023 CBC WITH DIFFE RENTI AL/PL ATELE T MCH 30.3 pg 26.6-3 3.0 Not Available [facility] Department [address] [place], [address], 09/28/2023 06:18:22 09/27/19 24 09/27/2023 CBC WITH DIFFE RENTI AL/PL ATELE T MCHC 33.4 g/dL 31.5-3 5.7 Not Available [facility] Department [address] [place], [address], 09/28/2023 06:18:22 09/27/19 24 09/27/2023 CBC WITH DIFFE RENTI AL/PL ATELE T RDW 12.3 % 11.5-1 4.5 Not Available [facility] Department [address] [place], [address], 09/28/2023 06:18:22 09/27/19 24 09/27/2023 CBC WITH DIFFE RENTI AL/PL ATELE T platelets 284 x10e3 /uL 150-45 0 Not Available [facility] Department [address] [place], [address], 09/28/2023 06:18:22 09/27/19 24 09/27/2023 CBC WITH DIFFE RENTI AL/PL ATELE T neutrophils 57 % notest b. Not Available [facility] Department [address] [place], [address], 09/28/2023 06:18:22 09/27/19 24 09/27/2023 CBC WITH DIFFE RENTI AL/PL ATELE T lymphs 32 % notest b. Not Available [facility] Department [address] [place] [address], [address], 09/28/2023 06:18:22 09/27/19 24 09/27/2023 CBC WITH DIFFE RENTI AL/PL ATELE T monocytes 9 % notest b. Not Available [facility] Department [address] [place], [address], 09/28/2023 06:18:22 09/27/19 24 09/27/2023 CBC WITH DIFFE RENTI AL/PL ATELE T eos 2 % notest b. Not Available [facility] Department [address] [place], [address], 09/28/2023 06:18:22 09/27/19 24 09/27/2023 CBC WITH DIFFE RENTI AL/PL ATELE T basos 0 % notest b. Not Available [facility] Department [address] [place], [address], 09/28/2023 06:18:22 09/27/19 24 09/27/2023 CBC WITH DIFFE RENTI AL/PL ATELE T neutrophils (absolute) 4.2 x10e3 /uL 1.4-7. 0 Not Available [facility] Department [address] [place], [address], 09/28/2023 06:18:22 09/27/19 24 09/27/2023 CBC WITH DIFFE RENTI AL/PL ATELE T lymphs (absolute) 2.4 x10e3 /uL 0.7-3. 1 Not Available [facility] Department [address] [place], [address], 09/28/2023 06:18:22 09/27/19 24 09/27/2023 CBC WITH DIFFE RENTI AL/PL ATELE T monocytes(ab solute) 0.7 x10e3 /uL 0.1-0. 9 Not Available [facility] Department [address] [place], [address], 09/28/2023 06:18:22 09/27/19 24 09/27/2023 CBC WITH DIFFE RENTI AL/PL ATELE T eos (absolute) 0.2 x10e3 /uL 0.0-0. 4 Not Available [facility] Department [address] [place], [address], 09/28/2023 06:18:22 09/27/19 24 09/27/2023 CBC WITH DIFFE RENTI AL/PL ATELE T baso (absolute) 0.0 x10e3 /uL 0.0-0. 2 Not Available [facility] Department [address] [place] [address], [address], 09/28/2023 06:18:22 09/27/19 24 09/27/2023 CBC WITH DIFFE RENTI AL/PL ATELE T immature granulocytes 0.1 % notest b. Not Available [facility] Department [address] [place], [address], 09/28/2023 06:18:22 09/27/19 24 09/27/2023 CBC WITH DIFFE RENTI AL/PL ATELE T immature grans (abs) 0.0 x10e3 /uL 0.0-0. 1 Not Available [facility] Department [address] [place], [address], 09/28/2023 06:18:22 09/27/19 24 09/27/2023 CBC WITH DIFFE RENTI AL/PL ATELE T NRBC 0 % 0-0 Not Available [facility] Department [address] [place], [address], 09/28/2023 06:18:22 09/27/19 24 09/28/2023 TSH+F REE T4 TSH 0.944 uIU/m L 0.450- 4.500 Not Available [facility] ([facility]) [address] [place], [address], 09/28/2023 10:13:58 09/27/19 24 09/28/2023 TSH+F REE T4 T4,free(dire ct) 1.43 NG/dL 0.82-1 .77 Not Available [facility] ([facility]) [address] [place], [address], 09/28/2023 10:13:58 09/27/19 24 09/28/2023 VITAM IN B12 vitamin B12 821 pg/mL 232-12 45 Not Available [facility] ([facility]) [address] [place], [address], 09/28/2023 10:14:00 09/27/19 24 09/28/2023 VITAM IN D, 25-HY DROXY vitamin D, 25-hydroxy 27.9 NG/mL 30.0-1 00.0 below low normal Vitam in D defic iency has been defin ed by the Insti tute of Medic ine and an Endoc rine Socie ty pract ice guide line as a level of serum 25-OH vitam in D less than 20 ng/mL (1,2) . The Endoc rine Socie ty went on to furth er defin e vitam in D insuf ficie ncy as a level betwe en 21 and 29 ng/mL (2). 1. IOM (Inst itute of Medic ine). 2010. Dieta ry refer ence matthias es for calci um and D. Rah banks [place]: The [facility] . 2. Shiv torres [place], Willie pavon [place], Celsa off-F marquise i PULIDO, et al. Evalu ation , treat ment, and preve ntion of vitam in D defic iency : an Endoc rine Socie ty clini jacy pract ice guide line. JCEM. 2010; 96(7) :1911 -30. Not Available [facility] ([facility]) [address] [facility], [place], [address], 09/28/2023 10:14:01 Result Notes None recorded. Problems No Known Problems Medical Equipment None Reported. Allergies Allergen ID Allergen Name Allergen Category Reaction Reaction Severity Criticality Documentation Date Start Date Code Code System Note Provider Name and Address Organization Details Recorded Time 721055 peanut allergeni c extract food,medi cation anaphylax is severe Not available 09/27/2023 42032 8 RxNorm Not Available Not Available Not Available Medications Name Sig Start Date Stop Date Status Note LastModified by Organization Details LastModified Time doxycyclin e hyclate 100 mg capsule TAKE 1 CAPSULE BY MOUTH TWICE DAILY FOR 7 DAYS 03/31 completed Not Available Not Available Not Available clindamyci n HCl 300 mg capsule TAKE 1 CAPSULE BY MOUTH EVERY 8 HOURS 03/31 completed Not Available Not Available Not Available Lidocaine Viscous 2 % mucosal solution 03/31 completed Not Available Not Available Not Available prednisone 20 mg tablet TAKE 2 TABLETS BY MOUTH DAILY FOR 5 DAYS 03/31 completed Not Available Not Available Not Available doxepin 10 mg capsule TAKE 1 CAPSULE BY MOUTH EVERY DAY NEEDED FOR ITCHING 03/31 completed Not Available Not Available Not Available cephalexin 500 mg capsule TAKE 1 CAPSULE BY MOUTH EVERY 6 HOURS FOR 10 DAYS 03/31 completed Not Available Not Available Not Available triamcinol one acetonide 0.1 % topical ointment APPLY TO FINGER TIPS NEEDED UP TO TWICE DAILY AFTER COMPLETIN G MUPIROCIN 03/31 completed Not Available Not Available Not Available Ear Drops (carbamide peroxide) 6.5 % 03/31 completed Not Available Not Available Not Available mupirocin 2 % topical ointment APPLY TOPICALLY TO THE AFFECTED AREA TWICE DAILY active not using right now Not Available Not Available Not Available clobetasol 0.05 % topical ointment APPLY TOPICALLY TO THE AFFECTED AREA TWICE DAILY FOR 1 WEEK 03/31 completed Not Available Not Available Not Available epinephrin e 0.3 mg/0.3 mL injection, auto-injec tor INJECT 1 PEN IN THE MUSCLE ONE TIME DIRECTED active Not Available Not Available No t Available ketoconazo le 2 % topical cream 03/31 completed Not Available Not Available Not Available fluticason e propionate 50 mcg/actuat ion nasal spray,susp ension SHAKE LIQUID AND USE 1 SPRAY IN EACH NOSTRIL TWICE DAILY active Not Available Not Available No t Available mometasone 0.1 % topical cream APPLY THIN LAYER TOPICALLY TO THE AFFECTED AREA DAILY FOR 1 TO 2 WEEKS 03/31 completed Not Available Not Available Not Available cholecalci ferol (vitamin D3) 25 mcg (1,000 unit) tablet TAKE 1 TABLET BY MOUTH EVERY DAY active Not Available Not Available No t Available Vitals Date Recorded Body height Body mass index (BMI) Body weight Body temperature Respiratory rate Heart rate Oxygen saturation Oxygen saturation in Arterial blood by Pulse oximetry Systolic blood pressure Diastolic blood pressure Systolic blood pressure Diastolic blood pressure Provider Name and Address Organization Details Last Updated DateTime 4 177.8 cm 31.5 kg/m2 44768.8 8 g 98.3 [degF] 17 /min 86 /min 98 % 98 % 148 mm[Hg] 88 mm[Hg] 134 mm[Hg] 82 mm[Hg] Joycelyn Barroso [place] [facility] 4 15:46:25 Date Recorded Body height Body mass index (BMI) Body weight Respiratory rate Oxygen saturation Oxygen saturation in Arterial blood by Pulse oximetry Heart rate Body temperature Systolic blood pressure Diastolic blood pressure Provider Name and Address Organization Details Last Updated DateTime 4 177.8 cm 31 kg/m2 86338.3 1 g 18 /min 98 % 98 % 74 /min 98.2 [degF] 117 mm[Hg] 83 mm[Hg] LUCY Guevara [place] - [facility] 4 15:20:55 Date Recorded Body height Body mass index (BMI) Body weight Respiratory rate Body temperature Oxygen saturation Oxygen saturation in Arterial blood by Pulse oximetry Heart rate Systolic blood pressure Diastolic blood pressure Provider Name and Address Organization Details Last Updated DateTime 177.8 cm 30.9 kg/m2 66490.4 1 g 16 /min 98 [degF] 98 % 98 % 88 /min 127 mm[Hg] 82 mm[Hg] Hilda Sunshine [place] - [facility] 16:38:07 Social History Question Answer Notes LastModified by Organizat ion Details LastModified Time Tobacco Smoking Status Never Smoker Joycelyn Barroso MA null, [place] - [facility] 09/27/2023 15:04:41 Do You Have An Advance Directive? No Information not available 09/27/2023 What Is Your Level Of Alcohol Consumption? Occasional Information not available 09/27/2023 Are You Blind Or Do You Have Difficulty Seeing? Yes Glasses Information not available 12/20/2023 What Is Your Level Of Caffeine Consumption? Occasional Information not available 09/27/2023 In The 14 Days Before Symptom Onset, Have You Had Close Contact With A Laboratory-confir med COVID-19 While That Case Was Ill? No Information not available 09/27/2023 In The 14 Days Before Symptom Onset, Have You Had Close Contact With A Person Who Is Under Investigation For COVID-19 While That Person Was Ill? No Information not available 09/27/2023 Have You Been To An Area Known To Be High Risk For COVID-19? No Information not available 09/27/2023 Are You Currently Employed? Yes Information not available 12/20/2023 Are You Deaf Or Do You Have Serious Difficulty Hearing? 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 No Information not available 09/27/2023 What Was The Date Of Your Most Recent Tobacco Screening? 03/31/2024 Information not available 03/31/2024 What Is Your Relationship Status? Information not available 09/27/2023 Are You Sexually Active? Yes Information not available 09/27/2023 Do You Have Smoke And Carbon Monoxide Detectors In Your Home? Yes Information not available 09/27/2023 Are You Passively Exposed To Smoke? No Information no t available 09/27/2023 Do You Feel Stressed (tense, Restless, Nervous, Or Anxious, Or Unable To Sleep At Night)? [id number] Information not available 09/27/2023 Do You Use Any Illicit Or Recreational Drugs? No Information not available 09/27/2023 Do You Use Sunscreen Routinely? Yes Information not available 09/27/2023 Has Tobacco Cessation Counseling Been Provided? Yes Information not available 12/20/2023 On What Date Was Tobacco Cessation Counseling Provided? 03/31/2024 Information not available 03/31/2024 Do You Or Have You Ever Used Any Other Forms Of Tobacco Or Nicotine? No Information not available 09/27/2023 Sex: Male Functional Status Question Answer Note LastModified by Organization D etails LastModified Time Are you able to care for yourself? Yes Information n ot available 12/20/2023 Mental Status None recorded. Family History Relationship Description Onset Age of this Age Resolved Age Notes LastModified by Organization Details LastModified Time Father Hypertensive disorder [email or web address] Not available 09/26 15:04:22 Notes:09/27/23, 03/31/24 Medical History Condition Response Coronary Artery Disease N Other N High Blood Pressure N Atrial Fibrillation N Thyroid Problems N Kidney or Bladder Problems N GI Problems N Depression N COPD N Blood Clots N Have you had a mammogram in the last yea r? N Skin Problems Y Eating Disorder N Anemia N Heart Attack ([place]) N Anxiety Disorder N Diabetes N Muscle, Joint, or Bone Problems N Arthritis N Seizures/Epilepsy N Have you had a colonoscopy in the last 1 0 years? N Acid Reflux (GERD) N Cancer N Stroke N Asthma N Allergies N Have you had a PSA blood test in the las t year? N ADHD N Substance Abuse N High Cholesterol N Hepatitis N Liver Disease N Schizophrenia N Headaches N Heart Failure N Osteoporosis N Immunizations Vaccine Type Date Status Note Provider Constantino cervantes and Address Organization Details Recorded Time COVID-19, mRNA, LNP-S, bivalent, PF, 30 mcg/0.3 mL dose 08/14/2020 completed RASHAWN [place], [place] - [facility] 09/27/2023 15:07:21 COVID-19, mRNA, LNP-S, bivalent, PF, 30 mcg/0.3 mL dose 09/11/2020 completed RASHAWN [place], [place] [facility] 09/27/2023 15:07:28 Tdap 09/27/2023 completed RASHAWN [place] [facility] 09/27/2023 15:57:37 Influenza, split virus, trivalent, PF 03/31/2024 completed DAIJA JHA Attn: Accounting[address] [place], [address], [place] [facility] 03/31/2024 16:57:07 Past Encounters Encounter ID Performer Location Encounter Start Date Encounter Closed Date Diagnosis/Indication Diagnosis SNOMED-CT Code Diagnosis ICD10 Code Diagnosis Note [id number] DAIJA [place] [facility] [address] [place] [address] 04/08/2020 14:44:03 04/09/2020 06:57:46 Viral screening 755852059 Z11.59 Viral syndrome 943966689 B34.9 [id number] DAIJA JHA Nikolai 14 IM [address] [facility] [address] [place] [id number] 09/27/2023 14:50:29 09/28/2023 10:52:20 Allergy to peanut 62476724 Z91.010 -Patient reports severe anaphylaxi s reaction to peanuts-Cornelio vaughan requesting Epipen renewal.-E R precaution s Adult [facility] th examination [id number] Z00.00 The patient was counseled regarding the appropriat e use ofalcohol, screening procedures and recommende d schedule for colonoscop y, psa, cholestero l, thyroid and diabetes screening, prevention of dental and periodonta l disease, diet, regular sustained exercise for at least 30 minutes 3-4 times per week, prostate cancer screening, regular use of seat belts.Javier mmend dilated eye exam and glaucoma screening every 2 years or as indicated by ophthalmol [facility] Maintenanc e:- CRC screening (45-75):Malcom cervantes at 45 years.- Osteoporos is screening: Due at 65.- Lipid screening (>45 unless additional risk factors): N/A- HIV : Declined 09/27/23- HepC: Declined 09/27/23-Ey e exam: 2023-Denta l Exam: 2023- Immunizati ons:- Influenza: Due Fall- Prevnar 20: Due at 65.- Tdap/Td ([id number]) : ordered- Zoster (>60):Due at 60.- COVID-19: 09/11/20, 08/14/20- AAA screening (65-75): Due at 65.- Prostate ca screening (>50 or >45 if AA, +FH; d/w patient): Due at 50.-Labs ordered this visit: CMP, CBC, TSH, T4, vitamin d, vitamin B12 Gastroesop hageal reflux disease without esophagitis [id number] K21.9 -Patient reports he has occasional acid reflux in the evenings.- Patient is not taking any medication currently. Patient reports he has been using TUMS PRN to control symptoms.- Patient agreeable to journal food intake and symptoms.- MATERIAL COMBINER discussed GERD diet at length.-MATERIAL COMBINER provided GERD instructio nal handout. Depressed mood [id number] F32.A -Patient reports he has had down mood related to unemployme nt.-Denies active suicidal or homicidal thoughts. Denies history of suicidal or homicidal thoughts.- Patient instructed to go to ER or call 911 or 988 for crisis (e.g., suicidal behaviors, suicidal ideations, intent or plan emerge). Additional ly, patient has suicide hotline #[phone].-Patie nt declined referrals to psychology and psychiatry .-Patient declined medication treatment. -Advised patient to call clinic with questions Impacted c erumen in left ear [id number] H61.22 -Left cerumen impaction noted.-Pat ient agreeable to debrox treatment. -Patient to f/u in clinic for ear irrigation if symptoms do not improve. Body mass index 30+ - obesity [id number] Z68.31 MATERIAL COMBINER advised patient to follow a well balanced diet and obtain regular exercise. Informatio nal handout provided. [id number] [facility] [address] [facility] [place] [address] 12/20/2023 15:06:41 01/14/2024 13:39:32 Eczema [id number] L30.9 -Patient has chronic eczema.-Pa tient agreeable to dermatolog ist referral.- Unsure if current rash is eczema vs fungal infection. -Plan to try antifungal cream, if treatment fails, plan to try higher level steroid cream. Tinea manus [id number] B35 .2 -Patient just started anti-funga l cream today.-Devorah n to treat with antifungal cream. If this treatment fails, patient agreeable to trial of steroid cream.-[place] matologist referral ordered-Ad vised patient to continue skin hydration, applying emollients and avoid exposure to pool chemicals. -Patient to follow up in clinic if symptoms do not improve. Depression screening [id number] Z13.31 -Patient mood is stable at this time.-Reas sess at next visit. HIV screen ing declined [id number] Z53.[id number] [facility] Nikolai [address] IM [address] [facility] [place] [address] 03/31/2024 16:27:52 04/08/2024 14:32:59 HIV screening declined [id number] 02307 Z53.20 Administra tion of influenza vaccine 45694060 Z23 -Patient agreeable to influenza vaccine.-N P discussed potential side effects and benefits of vaccine. Eczema [id number] L30.9 -Patient has chronic eczema.-Pa courtneynt agreeable to dermatolog ist referral.- Unsure if current rash is eczema vs fungal infection. 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 Vitamin D deficiency [id number] E55.9 -Recommend taking vitamin D supplement cholecalci ferol 1000 internatio nal units by mouth daily-Javier mmended foods high in vitamin D including: Milk, fortified orange juice, yogurt, salmon, canned tuna, cod liver oil and cereals with vitamin D added-[place] tor vitamin d levels Liver enzy mes level above reference range [id number] R74.01 -Recheck CMP-Consid er liver US if LFTs remain elevated Health Concerns Section Related Observation LastModified by Organization Detai ls LastModified Time None Recorded Concern Status LastModified by Organization Details LastModified Time None Recorded Advance Directives Directive N: Payers Encounter Date Sequence Insurance Name Policy Number Policy López Covered Member ID López Member ID Guarantor Name 04/08/2020 2 *SELF PAY* Chet Simpson 09/27/2023 2 *SELF PAY* Chet Simpson 09/27/2023 1 [facility] ON OR AFTER 11/04/20 (MEDICAID REPLACEMENT - HMO) Ariel Simpson [id number] Ariel Simpson 12/20/2023 2 *SELF PAY* Chet Simpson 12/20/2023 1 [facility] ON OR AFTER 11/04/20 (MEDICAID REPLACEMENT - HMO) Ariel Simpson [id number] Ariel Simpson 03/31/2024 2 *SELF PAY* Chet Simpson 03/31/2024 1 [facility] ON OR AFTER 11/04/20 (MEDICAID REPLACEMENT - HMO) Ariel Simpson [id number] Ariel Simpson Notes Date Note Type Note Provider Name and Address Organization Details Recorded Time 04/08/2020 text/html Pt with a histor y of asthma is requesting COVID-19 testing; as pt c/o non-productive cough x 3 days. Pt reports being in contact with someone (fiance) who recently tested positive. TASHI Campbell-DANNI Attn: Accounting[address] [place], [address], [place] 04/08/2020 14:54:03 09/27/2023 text/html Patient presents to the clinic to establish care. Patient has not seen a primary care provider for a while. -Medical Hx/Surgical Hx: severe peanut allergy, asthma -Family hx:Mother: living-healthyFather: living-hypertensionMat ernal Grandmother: living-healthyMaternal Grandfather: living-MIPaternal Grandmother: -unknownPatern al Grandfather: -unknownSister -living-healthy -Tobacco/Drug/Alcohol Use:Patient reports occasional alcohol use.Patient denies any tobacco or drug use. Chicken pox: Patient reports history of chicken pox as a child. 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 Patient reports he avoids candy and processed foods, he does occasionally have snack foods. Patient reports he tries to eat vegetables, fruits, and proteins. Patient reports he has 1 can of soda per day and tries to drink water. Allergies: peanuts DAIJA JHA Attn: Accounting[address] [place], [address], [facility] 09/27/2023 17:29:47 12/20/2023 text/html Patient presents to the clinic with acute complaint of a rash to bilateral hands. Patient's past medical history includes: severe peanut allergy, asthma, eczema. Rash-Patient reports his symptoms started in October-Patient reports he has tried 2 steroid creams, 2 antibiotic creams, oral steroids, and oral antibiotics x3 as treatment for this rash. 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 Patient reports he does not consistently wear gloves when working with pool chemicals. DAIJA JHA Attn: Accounting[address] [place], [address], [facility] 01/13/2024 18:54:42 03/31/2024 text/html Patient presents to the clinic for a 6 month follow up. Patient's past medical history includes: severe peanut allergy, asthma, eczema. -Patient reports his rash on his hands resolved after he stopped cleaning pools for the season-Patient has appointment in May with Dermatology-Patient reports every fall he develops a cough that does not go away. Patient reports he does not have the cough currently. Patient reports he went to urgent care and was prescribed an antibiotic. TASHI JHA-DANNI Attn: Accounting[address] [place], [address], [place] [facility] 04/08/2024 14:18:32
--- OUTSIDE RECORDS SUMMARY | 2024-06-27 09:56 | XMS_ITS | Clinical Summary ---
Author Organization [facility] Address [address] [place] [address] Phone Care Team Providers Care Core Shaper Sides Name Role Phone Unavailable Primary Care Provider Unavailabl e Social History Tobacco Use Types Packs/Day Years Used Date Smoking Tobacco: Never Assessed Sex and Gender Information Value Date Recorded Sex Assigned at Not on file Legal Sex Male 9:21 AM CDT Gender Identity Not on file Sexual Orientation Not on file Plan of Treatment Health Maintenance Due Date Last Done Comments DTAP/TDAP/TD VACCINES (1 - Tdap) 2009 HEPATITIS B VACCINES (1 of 3 - 19+ 3-dose series) 2009 INFLUENZA VACCINE (#1) 2023 HPV VACCINES Aged Out No longer eligi ble based on patient's age to complete this topic PNEUMOCOCCAL VACCINE 0-64 YEARS Aged Out No longer eligible based on patient's age to complete this topic
--- OUTSIDE RECORDS SUMMARY | 2024-06-27 09:56 | XMS_ITS | Continuity of Care Document ---
Author Organization [facility] Address [address] [place] [address] Phone Care Team Providers Care Subassembler Name Role Phone Juan Palmer MD Unavailable Unavailable Advance Directives Directive Yes / No Effective Date File Name No Information Encounters Encounter Description Practice Location Reason(s) For Visit Diagnoses Date Provider Providers Copied on Encounter [facility], [address], [place], [place], [id number], [place] tel:[phone] [facility] Professional No Information Mar-0 6-200 6 Estela Martinez. [address], [place], [place], [id number], [place]. tel:[phone] Family History Family Member Type Diagnosis Age At Onset No Information Payers Payer name Insurance type Covered libertarian ID Authoriza tion(s) No Information Social History Type Description Quantity Date Captured Comments Sex Male Smoking Status No Information Chief Complaint And Reason For Visit No Information Reason For Referral Reason For Referral No Information History Of Present Illness Encounter Date Complaint History Of Prese nt Illness No Information Functional Status Date Functional Assessmen t No Information Instructions Date Instruction Additional Infor mation No Information Assessments Type Assessment Date No Information Patient Care Teams Name Effective Dates (start - stop) Status Members No Information
--- OUTSIDE RECORDS SUMMARY | 2024-06-27 09:57 | XMS_ITS | Continuity of Care Document ---
Author Organization [facility] Address [address] [place] [address] Phone Care Team Providers Care Motors Assembler Name Role Phone Juan Palmer MD Unavailable Unavailable Advance Directives Directive Yes / No Effective Date File Name No Information Encounters Encounter Description Practice Location Reason(s) For Visit Diagnoses Date Provider Providers Copied on Encounter [facility], [address], [place], [place], [id number], [place] tel:[phone] [facility] Professional No Information Mar-0 6-200 6 Estela Martinez. [address] [place] [address], [place], [place], [address], [place]. tel:[phone] Family History Family Member Type Diagnosis Age At Onset No Information Payers Payer name Insurance type Covered green party ID Authoriza tion(s) No Information Social History [...]
== END 2024-06-27 10:01 | disposition home or self-care (01) ==
PROVIDERS: Emergency Provider Nurse Practitioner Family
DX: L02.416 Cutaneous abscess of left lower limb (principal)
CPT/HCPCS: 87070; 87075; 87181; 87205; 99213; G0463